=== PATIENT | female | born 1950 | race African-American/Black ===

== ENCOUNTER 2016-06-22 10:25 | Emergency (ER) | payer SELFPAY ==
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
[2016-06-22] MEDS ORDERED: OXYCODONE-ACETAMINOPHEN 5-325 MG TABLET PO ONE (10:46)
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
[2016-06-22 11:50] VITALS: BP 150/70
== END 2016-06-22 11:48 | disposition home or self-care (01) ==
LOC: ER 10:25
PROC: 2W3DX1Z Immobilization of Left Lower Arm using Splint (ICD-10-PCS; principal; 2016-06-22)
DX: S52.292A Other fracture of shaft of left ulna, initial encounter for closed fracture (principal); F17.200 Nicotine dependence, unspecified, uncomplicated; Y08.09XA Assault by strike by other specified type of sport equipment, initial encounter; Z88.6 Allergy status to analgesic agent; Z90.710 Acquired absence of both cervix and uterus
CPT/HCPCS: 99283

== ENCOUNTER 2016-09-23 21:30 | Emergency (ER) | payer MEDICARE, MEDICAID ==
[2016-09-23] MEDS ORDERED: PREDNISONE 20 MG TABLET PO ONE (23:39)
[2016-09-23] MEDS ORDERED: CEPHALEXIN 500 MG CAPSULE PO ONE (23:39)
--- NOTE | 2016-09-23 23:42 | ER Document Report ---
HPI - HPI Patient complains to provider of: skin rash Pain Level: Denies Context: Patient is a 66-year-old female that comes emergency department for chief complaint of an itchy rash over her chest, on the back of her neck, and also on the right side of her face. She states it started on her chest, is very itchy and she has been scratching at it. She denies any pain, denies any fever or chills, denies any other symptoms. She is not a diabetic. She noticed that there are some irritated areas where she scratched with mild redness over her chest. She denies any pus drainage. She states she has had this before but it is not been diagnosed. - REPRODUCTIVE Reproductive: DENIES: : - DERM Skin Color: Normal Past Medical History - General Information source: Patient - Social History Smoking Status: Never Smoker Frequency of alcohol use: None Lives with: Family Family History: Reviewed & Not Pertinent - Past Medical History Cardiac Medical History: Denies: Hx Coronary Artery Disease, Hx Heart Attack, Hx Hypertension Pulmonary Medical History: Reports: Hx Bronchitis - hx of Denies: Hx Asthma, Hx COPD, Hx Pneumonia Neurological Medical History: Denies: Hx Cerebrovascular Accident, Hx Seizures Renal/ Medical History: Denies: Hx Peritoneal Dialysis Musculoskeltal Medical History: Reports Hx Arthritis - mild Past Surgical History: Reports: Hx Hysterectomy. Denies: Hx Pacemaker - Immunizations Hx Diphtheria, Pertussis, Tetanus Vaccination: Yes Vertical Provider Document - CONSTITUTIONAL General Appearance: WD/WN, No Apparent Distress - INFECTION CONTROL TRAVEL OUTSIDE OF THE [place] IN LAST 30 DAYS: No - HEENT HEENT: Atraumatic, Normal ENT Exam, Normocephalic - NECK Neck: Normal Inspection - RESPIRATORY Respiratory: Breath Sounds Normal, No Respiratory Distress O2 Sat by Pulse Oximetry: 100 - CARDIOVASCULAR Cardiovascular: Regular Rate, Regular Rhythm - GI/ABDOMEN Gastrointestinal: Abdomen Soft, Abdomen Non-Tender - BACK Back: Normal Inspection - MUSCULOSKELETAL/EXTREMETIES Musculoskeletal/Extremeties: DAVID CAMACHO, Non-Tender - DERM Integumentary: Rash - scattered papules, dry skin, and a couple of vesicles spread over the right side of her face, right chest area, minimally on the left side, and also on her neck. No pustules, induration, fluctuance, significant erythema. There is a small area of mild erythema over excoriated areas on the right chest Course - Re-evaluation Re-evalutation: Patient has eczema-like rash over the right side of her face, right chest area, minimally on the left side, and also on her neck. No pustules, induration, fluctuance, significant erythema. There is a small area of mild erythema over excoriated areas on the right chest. Patient denies pain, reports it is itchy. Patient has had this in the past and it has resolved with cream. However because of the face location patient will be treated with a course of steroids, given cream to apply to the other locations, given Keflex because of excoriated area with possible early bacterial infection. Discussed follow-up, discussed return precautions in detail, patient states satisfaction and agreement. 09/24/16 05:27 - Vital Signs Vital signs: Temp Pulse Resp BP Pulse Ox 98.4 F 67 18 180/87 H 100 09/23/16 22:23 09/23/16 22:23 09/23/16 22:23 09/23/16 22:23 09/23/16 22:23 Discharge - Discharge Clinical Impression: Skin rash Condition: Stable Disposition: HOME, SELF-CARE Additional Instructions: Examination is consistent with probable eczema, take the prednisone as prescribed, use the topical cream given on the neck and chest. Take the antibiotic as directed, do not scratch anymore, also apply topical antibiotic such as Neosporin over the scratched areas on your chest. Take the Zyrtec for itching. After itching and rash resolves, if the skin is dry apply a moisturizing cream. Follow-up with primary care. Return to emergency department for any concerning symptoms. Prescriptions: Betamethasone Dipropionate 1 applic TP DAILY #1 tube Cephalexin Monohydrate [Keflex 500 mg Capsule] 500 mg PO QID #28 capsule Cetirizine HCl [Zyrtec 10 mg Tablet] 1 tab PO DAILY #30 tablet Prednisone [Deltasone 10 mg Tablet] 10 mg PO ASDIR PRN #21 tablet PRN Reason: Forms: Elevated Blood Pressure Referrals: VINH BURRELL PA [Primary Care Provider] - Follow up as needed
[2016-09-24 00:15] VITALS: BP 149/77
== END 2016-09-24 00:19 | disposition home or self-care (01) ==
LOC: ER 21:30
DX: R21 Rash and other nonspecific skin eruption (principal)
CPT/HCPCS: 99282; A9270 ×2; J7512; L0120

== ENCOUNTER → 2017-11-05 | Outpatient (CLI) | payer MEDICARE, MEDICAID ==
[2017-11-05 12:45] LABS: ABSOLUTE BASOPHILS # (AUTO) 0.1 10^3/uL (0.0-0.2); ABSOLUTE EOSINOPHILS # (AUTO) 0.2 10^3/uL (0.0-0.6); ABSOLUTE LYMPHOCYTES (AUTO) 2.7 10^3/uL (0.5-4.7); ABSOLUTE MONOCYTES (AUTO) 0.7 10^3/uL (0.1-1.4); ABSOLUTE NEUT (AUTO) 3.3 10^3/uL (1.7-8.2); BASOPHILS % (AUTO) 0.9 % (0-2); EOSINOPHILS % (AUTO) 2.3 % (0-6); HEMATOCRIT 40.2 % (36.0-47.0); HEMOGLOBIN 13.6 g/dL (12.0-15.5); LYMPHOCYTES % (AUTO) 39.3 % (13-45); MEAN CORPUSCULAR HEMOGLOBIN 30.6 pg (27.0-33.4); MEAN CORPUSCULAR HGB CONC 33.7 g/dL (32.0-36.0); MEAN CORPUSCULAR VOLUME 91 fl (80-97); MONOCYTES % (AUTO) 9.7 % (3-13); PLATELET COUNT 238 10^3/uL (150-450); RED BLOOD COUNT 4.43 10^6/uL (3.72-5.28); RED CELL DISTRIBUTION WIDTH 15.3 % (11.5-14.0); SEGMENTED NEUTROPHILS % (AUTO) 47.8 % (42-78); TOTAL CELLS COUNTED % (AUTO) 100 %; WHITE BLOOD COUNT 6.9 10^3/uL (4.0-10.5)
[2017-11-05 13:06] LABS: ALANINE AMINOTRANSFERASE 19 U/L (9-52); ALBUMIN 4.3 g/dL (3.5-5.0); ALKALINE PHOSPHATASE 60 U/L (38-126); ANION GAP 9 (5-19); ASPARTATE AMINO TRANSFERASE 26 U/L (14-36); BILIRUBIN,DIRECT 0.5 mg/dL (0.0-0.4); BILIRUBIN,TOTAL 0.5 mg/dL (0.2-1.3); BLOOD UREA NITROGEN 11 mg/dL (7-20); CALCIUM 10.3 mg/dL (8.4-10.2); CARBON DIOXIDE 28 mmol/L (22-30); CHLORIDE 108 mmol/L (98-107); GLUCOSE 85 mg/dL (75-110); POTASSIUM 4.3 mmol/L (3.6-5.0); SODIUM 144.6 mmol/L (137-145); TOTAL PROTEIN 7.4 g/dL (6.3-8.2)
== END ==
LOC: OD 11:55
PROVIDERS: ATTEND Internal Medicine Geriatric Medicine
DX: I10 Essential (primary) hypertension (principal)
CPT/HCPCS: 36415; 80053; 85025